=== PATIENT | female | born 1975 | race Caucasian/White ===

== ENCOUNTER 2018-12-08 12:05 | Inpatient (IN) | payer MEDICARE, MEDICAID ==
[~2018-12-08 12:05] MED LIST: Buffered Lidocaine 1% SYRIN* 1 ML/SYRINGE INTRADERM ONE; Dexamethasone IV* 4 MG/ML 1 ML (4 MG) IV SLOW PU ONE; Famotidine TAB* 20 MG PO ONE; Lactated Ringers 1000 ML Bag* 1,000 ML IV SCH
[2018-12-08] MEDS ORDERED: Dexamethasone IV* 4 MG/ML 1 ML (4 MG) ONE (13:01)
[2018-12-08] MEDS ORDERED: Famotidine TAB* 20 MG ONE ×2 (13:01→13:43)
[2018-12-08] MEDS ORDERED: Buffered Lidocaine 1% SYRIN* 1 ML/SYRINGE INTRADERM ONE (13:02)
[2018-12-08] MEDS ORDERED: ceFAZolin 2 GM PREMIX in ORs 2 GM/50 ML BAG IVPB ONE (13:04)
[2018-12-08] MEDS ORDERED: ceFAZolin 1 GM in Dextrose (*) 1 GM/50 ML BAG IVPB ONE (13:04)
[2018-12-08] MEDS ORDERED: fentaNYL* 50 MCG/ML 2 ML VIAL (100 MCG VIAL) ONE ×2 (13:46→18:38)
[2018-12-08] MEDS ORDERED: Midazolam* 1 MG/ML 2 ML VIAL (2 MG) ONE (13:46)
[2018-12-08] MEDS ORDERED: Propofol* 10 MG/ML 20 ML BTL ONE (13:47)
[2018-12-08 13:57] LABS: Urine Benzodiazepine Screen None Detected (None Detect); Urine Opiates Screen None Detected (None Detect)
[2018-12-08] MEDS ORDERED: Levalbuterol 0.63MG/3ML NEB* UNIT OF USE INH ONE ×3 (14:42→19:06)
[2018-12-08] MEDS ORDERED: Lidocaine 2% PF * 5 ML VIAL ONE (15:18)
[2018-12-08] MEDS ORDERED: Rocuronium* 10 MG/ML VIAL ONE (15:18)
[2018-12-08] MEDS ORDERED: Succinylcholine* 20 MG/ML 10 ML VIAL ONE (15:18)
[2018-12-08] MEDS ORDERED: HYDROmorphone INJ1* 1 MG/ML SYRINGE ONE ×2 (15:38→17:38)
[2018-12-08] MEDS ORDERED: KETAMINE HCL* 50 MG/ML 10 ML VIAL ONE (15:38)
[2018-12-08] MEDS ORDERED: oxyCODONE TAB* 5 MG TAB PO PRN (16:00)
[2018-12-08] MEDS ORDERED: Acetaminophen IV 1GM/100ML * 1,000 MG/100 ML VIAL IVPB ONE (16:00)
[2018-12-08] MEDS ORDERED: PROCHLORPERAZINE INJ 5 MG/ML 2 ML VIAL IV PRN (16:00)
[2018-12-08] MEDS ORDERED: HYDROmorphone INJ1* 1 MG/ML SYRINGE IV PRN (16:00)
[2018-12-08] MEDS ORDERED: Naloxone* 0.4 MG/ML 1 ML VIAL IV PRN (16:00)
[2018-12-08] MEDS ORDERED: DiMENhydriNATE IV* 50 MG/ML VIAL IV PUSH PRN (16:00)
[2018-12-08] MEDS ORDERED: Ketorolac INJ* 30 MG/ML 1 ML VIAL IV PRN (16:00)
[2018-12-08] MEDS ORDERED: Ondansetron INJ* 2 MG/ML VIAL ONE (17:42)
[2018-12-08] MEDS ORDERED: Magnesium Hydroxide LIQ* 30 ML UDC PO PRN (18:02)
[2018-12-08] MEDS ORDERED: Acetaminophen TAB* 325 MG PO PRN (18:02)
[2018-12-08] MEDS ORDERED: diPHENhydraMINE IV* 50 MG/ML 1 ml VIAL (BENADRYL) IV PRN (18:02)
[2018-12-08] MEDS ORDERED: Ondansetron INJ* 2 MG/ML VIAL IV PRN (18:02)
[2018-12-08] MEDS ORDERED: Bisacodyl SUPP* 10 MG SUPP PR PRN (18:02)
[2018-12-08] MEDS ORDERED: oxyCODONE/Acetamin 5/325 MG* TAB PO PRN (18:02)
[2018-12-08] MEDS ORDERED: Ketorolac INJ* 30 MG/ML 1 ML VIAL ONE (18:33)
[2018-12-08] MEDS ORDERED: Acetaminophen IV 1GM/100ML * 100 ML ONE (18:33)
[2018-12-08] MEDS ORDERED: oxyCODONE TAB* 5 MG TAB ONE (18:38)
[2018-12-08] MEDS ORDERED: Lactated Ringers 1000 ML Bag* 1,000 ML IV SCH (19:00)
[2018-12-08] MEDS: fentaNYL* 50 MCG/ML 2 ML VIAL (100 MCG VIAL) IV PRN ×2 (19:01→19:32)
[2018-12-08] MEDS: Diazepam TAB(*) 5 MG PO PRN (21:49)
[2018-12-08] MEDS: Magnesium Hydroxide LIQ* 30 ML UDC PO SCH (21:49)
[2018-12-08] MEDS: Docusate CAP* 100 MG PO SCH (21:49)
[2018-12-08] MEDS: ceFAZolin 1 GM ADVAN(*) 1 GM in NS 0.9% 50 ML* 50 ML IVPB SCH (23:19)
[2018-12-08] MEDS: oxyCODONE/Acetamin 5/325 MG* TAB PO PRN (23:19)
[2018-12-09] MEDS: oxyCODONE/Acetamin 5/325 MG* TAB PO PRN ×3 (03:21→14:24)
[2018-12-09] MEDS: Magnesium Hydroxide LIQ* 30 ML UDC PO SCH (07:38)
[2018-12-09] MEDS: ceFAZolin 1 GM ADVAN(*) 1 GM in NS 0.9% 50 ML* 50 ML IVPB SCH ×2 (07:39→15:16)
[2018-12-09] MEDS: Docusate CAP* 100 MG PO SCH (07:39)
[2018-12-09] MEDS ORDERED: amLODIPine TAB* 5 MG PO SCH (09:00)
[2018-12-09] MEDS ORDERED: Vitamin THERAPEUTIC TAB PO SCH (09:00)
[2018-12-09] MEDS ORDERED: Aspirin TAB* 325 MG PO SCH (09:00)
[2018-12-09] MEDS ORDERED: Losartan TAB* 25 MG PO SCH (09:00)
[2018-12-09] MEDS ORDERED: Gabapentin CAP(*) 300 MG PO SCH (09:00)
[2018-12-09] MEDS ORDERED: BuPROPion XL* 300 MG TAB.XL PO SCH (09:00)
[2018-12-09] MEDS: Diazepam TAB(*) 5 MG PO PRN (09:05)
--- NOTE | 2018-12-09 12:25 | PN ---
Progress Note - Progress Note Date of Service: 12/09/18 SOAP: Subjective: []Pt seen OOB in chair. She feels well, she has left knee pain but it is tolerable. Denies CP, feeling of irregular heartbeats, SOB, dizziness, nausea. Objective: []General: Appears well, NAD LLE: IROM locked in extension. DF/PF ankle and f/e MTPs intact. DP2+, sensation intact to light touch distally. Calves supple and nontender without erythema, edema or palpable cords Assessment: []POD 1 sp L knee revision patella tendon repair Plan: [TTWB LLE Keflex 500 mg TID x 7 days aspirin 325 mg BID for dvt prophy Anticipate DC home today Vital Signs Temp 98.3 F 12/09/18 07:23 Pulse 101 12/09/18 07:23 Resp 18 12/09/18 10:04 BP 117/68 12/09/18 07:23 Pulse Ox 96 12/09/18 07:49 Intake & Output 12/08/18 12/09/18 12/09/18 18:59 06:59 18:59 Intake Total 1999 1475 683 Output Total 800 300 Balance 1999 675 383 Weight 271 lb 9.752 oz Intake: IV Fluids 1999 615 683 ABX - CEFAZOLIN 55 110 LR 2000 560 573 Oral 860 Output: Urine 800 300 Laboratory Last Values Urine Opiates Screen None detected (None Detect) 12/08/18 13:00 Ur Barbiturates Screen None detected (None Detect) 12/08/18 13:00 Ur Phencyclidine Scrn None detected (None Detect) 12/08/18 13:00 Ur Amphetamines Screen None detected (None Detect) 12/08/18 13:00 U Benzodiazepines Scrn None detected (None Detect) 12/08/18 13:00 Urine Cocaine Screen None detected (None Detect) 12/08/18 13:00 U Cannabinoids Screen None detected (None Detect) 12/08/18 13:00
--- NOTE | 2018-12-09 13:28 | DS ---
Orthopedic Discharge Summary - Discharge Summary Date of Admission:12/08/18 Date of Discharge: 12/09/18 Date of Surgery: 12/08/18 Attending Orthopedic Provider: Dr Valadez Pre-operative Diagnosis: chronic left patellar tendon tear Operative Procedure: left patellar tendon repair revision Condition of Patient: stable History: LAWRENCE VAELRA is a 43 year old F with chronic left patellar tendon tear. She elected to undergo a left patellar tendon repair. Hospital Course: LAWRENCE was admitted to [facility] on 12/08/18. Patient underwent a [] without complication followed by a brief recovery in PACU and transfer to the Short Stay Surgical Unit in stable condition. Post-op day 1: patient was alert and in no acute distress. Dressing was clean, dry and intact. IROM in place locked in extension. Operative extremity dorsiflexion and plantarflexion intact, sensation intact to light touch distally, DP2+. Stable for discharge to home. Discharge Medications Medication Instructions Recorded Confirmed Type Acetaminophen [Acetaminophen Extra 500 - 1,000 mg PO BID PRN 12/02/18 12/08/18 History Strength] DOXYcycline CAP(*) [DOXYcycline 100 mg PO QAM 12/02/18 12/08/18 History 100MG CAP(*)] Gabapentin 600 mg PO QAM 12/02/18 12/08/18 History Losartan Potassium [Cozaar] 50 mg PO QAM 12/02/18 12/08/18 History Naltrexone TAB* 50 mg PO QAM 12/02/18 12/08/18 History amLODIPine TAB* [Norvasc 5 mg TAB*] 5 mg PO QAM 12/02/18 12/08/18 History buPROPion SR TAB* [Wellbutrin SR 300 mg PO QAM 12/02/18 12/08/18 History TAB*] Acetaminophen TAB* [Tylenol TAB*] 650 mg PO Q8H PRN tab 12/09/18 Rx Aspirin TAB* [Aspirin 325 MG TAB*] 325 mg PO BID #60 tab 12/09/18 Rx Docusate CAP* [Colace Cap*] 100 mg PO BID PRN #90 cap 12/09/18 Rx oxyCODONE/Acetamin 5/325 MG* 1 tab PO Q4H PRN #0 tab MDD 8 12/09/18 Rx [Percocet 5/325 TAB*] oxyCODONE/Acetamin 5/325 MG* 2 tab PO Q4H PRN #40 tab MDD 8 12/09/18 Rx [Percocet 5/325 TAB*] Discharge Instructions following Orthopedic Surgery: Activity: * toe touch weight bearing with IROM brace in place locked in extension * Keep leg straight in IROM brace at all times Wound care: Keep dressing clean, dry and intact until follow up visit Call Orthopedic office for: * Increased drainage * Redness * Increased pain * Fever Go to ER with shortness of breath or chest pain. Diet: * Regular diet * Increase fluids and fiber to prevent constipation. * Continue to use stool softeners, call office if no bowel motion within 48 hours. Medications See Home Medication List in your packet for medications that you should take after discharge. DVT Prophylaxis: Aspirin Dosin mg twice a day for duration of immobilization Pain Control: Percocet Dosin/325 mg 1-2 tabs by mouth every 4-6 hours as needed for pain. Maximum of 8 tabs per day. Hold for sedation. Wean off as soon as pain allows. To wean, space out doses. Please note that Percocet contains Tylenol (acetaminophen). Maximum daily dose of Tylenol is 4000 mg from all sources. FOLLOW UP: Follow up with [Rory] Within 10 days, sooner with concerns, call for appointment Please call our office with any questions or concerns ([phone])
[2018-12-09 15:29] VITALS: BP 109/61
--- NOTE | 2018-12-11 13:54 | OP ---
OPERATIVE NOTE: DATE OF OPERATION: 12/08/18 DATE OF : 71 SURGEON: Viktor Valadez MD. TURNER IN: MICHAEL Reza A physician assistant to the ceo was required for the length of the procedure for assistance with positioning, retraction, and closure. ANESTHESIOLOGIST: Dr. Viktor Robles. ANESTHESIA: General anesthesia, local anesthesia. PRE-OP DIAGNOSES: 1. Chronic left patellar tendon tear. 2. Status post patellar tendon repair by Dr. Jose Antonio Huddleston, 02/26/18, with subsequent early re-tear. 3. History of recent drug addiction, including methamphetamine use. 4. Left patella fracture, distal 5. Left knee osteoarthritis POST-OP DIAGNOSES: 1. Chronic left patellar tendon tear. 2. Status post patellar tendon repair by Dr. Jose Antonio Huddleston, 02/26/18 with subsequent early re-tear. 3. History of recent drug addiction including methamphetamine use. 4. Left patella fracture, distal 5. Left knee osteoarthritis OPERATIVE PROCEDURES: 1. Revision left open patellar tendon repair. 2. Supplementation of left open patellar tendon repair with hamstring autograft and Arthrex internal brace. 3. Modifier 22, as this was an unusual or complex case. This was so because this was a revision case and because the patellar tendon had been chronically re -torn since at least May 2018, over 6 months ago. Besides performing a patellar tendon repair, I supplemented the repair with hamstring autograft and also used an Arthrex internal brace. 4. Open removal of lateral patella osteophyte with repair of lateral retinaculum left knee. ANTIBIOTICS: 3 g Ancef IV. IV FLUIDS: 1800 cc crystalloid. TOURNIQUET TIME: 120 minutes at 300 mmHg, left thigh. [id number] TIME: 127 minutes. SPECIMEN: None. IMPLANTS: Arthrex SwiveLock suture anchor with tape and #2 FiberWire, 2 anchors - 1 in the patella and 1 in the proximal tibia. COMPLICATIONS: None. ESTIMATED BLOOD LOSS: Minimal. INDICATIONS FOR PROCEDURE: The patient is a 43-year-old woman, disabled secondary to back pain starting 2007, who injured her left knee with a fall down stairs on 02/19/18. She underwent primary left open patellar tendon repair by Dr. Jose Antonio Huddleston at [facility] 7 days later on 02/26/18. The operative note dictates that this was a straightforward repair; according to the patient, Dr. Huddleston described a 50% chance of success. The patient never did physical therapy. During the postoperative period, the patient was utilizing drugs secondary to her drug addiction. There were also multiple falls. The patient presented to me in clinic saying that she had had a severe injury to the left knee in July 2018; however, clearly there had been problems before then because there is an MRI from outside hospital from that already demonstrated a patellar tendon re-tear. The patient had been told that she had had a patellar fracture and indeed MRIs have demonstrated that the distalmost end of the patella fractured off with one of these falls. The patient most recently had been walking in a knee brace with range of motion limited to 0 to 30 degrees of flexion. The patient is obese with a BMI over 40. Her tear was chronic and it had already been repaired, so this was a revision setting. The patient also is a tobacco user, chewing tobacco 4 times a day. Certainly, there are many concerning attributes to this case and strikes against her having a successful outcome. The patient swore to me that she would do physical therapy postoperatively if we were to operate on her. The patient has also spent some time in residential in the past year. MRI showed clearly torn tissue, but appeared to show some good quality patellar tendon tissues still present distally. The patient opted for surgical procedure. Discussed risks and potential complications of surgery. I discussed revision repair or reconstruction and I had Achilles and hamstring tendon allograft available as needed for the reconstruction setting. DESCRIPTION OF PROCEDURE: In preoperative holding, the patient signed a written consent. Operative extremity was marked in the preoperative holding. The patient was taken back to the operating room and placed supine on operating room table. Sedated and intubated. Placed a tourniquet about the left proximal thigh. Left lower extremity was prepped and draped. A surgical time-out performed. Esmarch was applied and tourniquet was elevated. Made an anterior longitudinal skin incision. I went through the patient's prior surgical scar, which was biased medially about the anterior aspect of the knee. I dissected down to the extensor mechanism. The patient, as I predicted based on preoperative MRIs, had a significant amount of scar tissue present. I started with the distalmost aspect of the patellar tendon to find some good quality tissue that could help me identify skin planes. I did identify good quality patellar tendon tissue distally. Also, having found the correct layer, I dissected tissue off the medial and lateral retinaculum. Dissecting with scissors or with my fingers when appropriate, I dissected along the patellar tendon. I marked a spot almost 5 cm from the distal end of the patellar tendon where the character of the tissue appeared to change. Depending on exactly where it was measured on the patellar tendon insertion, this was 4 to 5 cm from its distal end. I thought that this was likely the proximal-most extent of the good quality patellar tendon tissue. I continued my dissection. I found that indeed there were multiple nonabsorbable sutures present at this level, consistent where the patient had previously had a patellar tendon repair and where the proximal extent of his sutures was located. Carefully dissected about the tendon. Just in case this had been a mid substance rupture, which is not what the prior operative note had indicated, I did not want to remove any good quality tissue. I removed en bloc next, scar tissue that had formed between the patellar tendon and the patella, which had artificially elongated the patellar tendon making it nonfunctional. I was able to bring the patella onto the patellar tendon without any difficulty. Given that there had been some loss of distal patella with fracture , I was concerned slightly about patella baja; however, this patient first and foremost needed a competent external mechanism to prevent instability of the knee. I did find a bony fragment at the distal end of the patella that I removed. I should also state that the patient was noted on preoperative imaging to have a large spur already about the lateral aspect of the patella, consistent already with arthritic changes in the knee. Given the large size of this spur and its potential to cause significant pain, I decided to remove it. I made a small incision in the lateral retinaculum just lateral to the patella, dissected down to that spur and removed it with a rongeur. Given the ability to bring patellar tendon to patella with the knee in extension without significant force, I decided that I would do a suture tunnel repair of the patellar tendon. However, given the patient's poor compliance, obesity, smoking, and the revision nature of this procedure, I definitely wanted to reinforce this repair with as much strength and biology as possible. Therefore, I decided that I would also supplement it with hamstring autograft. Also decided that I would use an internal brace with suture anchors in the patella and in the proximal tibia. Initially, I have planned on placing 3 suture tunnels in the patella followed by 1 to 2 suture anchors along the periphery of the patella and the proximal tibia. However, given the small size of the patella, and the fact that the distal end of it had fractured off, I did not have enough room for this. Therefore, I came up with alternative, which was 2 suture anchors, one medial and the other lateral, longitudinal, it is normally the case. However, I replaced the center suture tunnel with a suture anchor. This was going to be a SwiveLock that I would incorporate both into my repair and into my internal brace. Using a 2 mm drill bit, I placed my medial and lateral tunnels in the patella. I placed passing suture into those tunnels. I next drilled, tapped, and placed a SwiveLock anchor in the center at the distal end of the patella. I next placed a whipstitch in the patella using FiberWire #5 suture. This was [place] stitch. I placed it along the medialmost aspect of the patellar tendon and then along the lateralmost aspect of the patellar tendon. I brought the suture ends through the suture tunnels. I brought the sutures together at the proximal aspect of the patella. With the knee in full extension, I tied a knot proximally, which brought together nicely the patellar tendon to the patella. Next, I used the suture from the anchor in the patella to place a second [place] stitch moving distal and then proximal of the center of the patellar tendon. I tied that proximally. Now, I essentially had 2 different [place] stitches in the patellar tendon that were fixed with suture tunnels and then anchor proximally. Next, I took the FiberTape from the patellar anchor and created an internal brace. I placed that through the superficial most aspect of part of the patellar tendon just to prevent the tape from being too prominent. I flexed the knee to 20 to 30 degrees of flexion, found a spot distal and slightly medial to the insertion of the patellar tendon. I placed a SwiveLock anchor there with the tape. It should be noted that even before I placed the internal brace with my second SwiveLock anchor, I was able to flex the knee to at least 30 to 40 degrees of flexion without any gapping of my patellar tendon repair. After having done the patellar tendon repair and the Arthrex internal brace, I wanted to add additional biology to the repair. I released the sartorius fascia overlying the hamstring tendons. I identified the gracilis and semitendinosus tendons. I harvested these tendons using an open harvester, leaving their insertions in the proximal tibial intact. I removed excess muscle from these tendons, just utilizing tendinous component of them. I next used a sharp small hemostat to weave those tendons through the extensor mechanism, bringing them proximally through the quadriceps tendon just proximal to the patella and then down distally until the ends of the tendon reached the patellar tendon itself. Many stitches were placed to hold the graft in place in the extensor mechanism. Irrigation. Closure of the lateral retinaculum of the patella where the osteophyte had been removed from the patella with Vicryl 0 suture. Closure of any defects in retinaculum that could be closed with [id number] stitches using Vicryl 0 suture. I also tightened some retinaculum that appeared overly loose. Irrigation. Closure of the subcutaneous tissue using buried simple stitches using Vicryl 2-0 suture. Closure of the skin with светлана. Local anesthesia placed into the subcutaneous tissues using Marcaine 0.5% with epinephrine. Xeroform, 4x4's, ABD, sterile Webril, Francisco bandage from foot to proximal thigh. Tourniquet was dropped. The patient was placed in a knee brace locked in extension. The patient was awakened and extubated. DISPOSITION: The patient was admitted postoperatively to my service for pain control given the significant painful nature of extensor mechanism procedures. She was placed on Valium and then required additional muscle relaxants. She was also given IV and oral narcotics as needed for pain control. She met with Physical Therapy about functional assistance. She would be discharged home when medically stable. The patient will be discharged home on Percocet as needed for pain control and Valium as needed for muscle spasm. She also received aspirin for 2 weeks for DVT prophylaxis. She will follow up with me in clinic 10 to 14 days postoperatively. She will be in a knee brace or knee immobilizer at all times with the knee locked in full extension. The patient will not begin physical therapy until after she sees me postoperatively in clinic. The patient is to be only toe touch weightbearing with that left lower extremity. [id number]/[facility] #: [id number] [facility]OSPITALJeovany
== END 2018-12-09 16:25 | disposition home or self-care (01) | DRG 488 ==
LOC: OR 12:05 → SSU 18:02
PROVIDERS: ADMIT Orthopaedic Surgery; ATTEND Orthopaedic Surgery
PROC: 0QBF0ZZ Excision of Left Patella, Open Approach (ICD-10-PCS; 2018-12-08)
PROC: 0LUR07Z Supplement Left Knee Tendon with Autologous Tissue Substitute, Open Approach (ICD-10-PCS; 2018-12-08)
PROC: 0LBM0ZZ Excision of Left Upper Leg Tendon, Open Approach (ICD-10-PCS; 2018-12-08)
PROC: 0LUR0JZ Supplement Left Knee Tendon with Synthetic Substitute, Open Approach (ICD-10-PCS; principal; 2018-12-08 15:15)
DX: S76.112A Strain of left quadriceps muscle, fascia and tendon, initial encounter (principal); S82.002A Unspecified fracture of left patella, initial encounter for closed fracture; Z68.41 Body mass index [BMI] 40.0-44.9, adult; F15.21 Other stimulant dependence, in remission; M76.892 Other specified enthesopathies of left lower limb, excluding foot; E66.9 Obesity, unspecified; I10 Essential (primary) hypertension; M25.362 Other instability, left knee; J43.9 Emphysema, unspecified; G47.30 Sleep apnea, unspecified; F31.9 Bipolar disorder, unspecified; F41.9 Anxiety disorder, unspecified; M54.9 Dorsalgia, unspecified; K21.9 Gastro-esophageal reflux disease without esophagitis; F17.220 Nicotine dependence, chewing tobacco, uncomplicated; W18.30XA Fall on same level, unspecified, initial encounter; Y92.9 Unspecified place or not applicable; Z83.3 Family history of diabetes mellitus; Z82.49 Family history of ischemic heart disease and other diseases of the circulatory system; Z80.1 Family history of malignant neoplasm of trachea, bronchus and lung; Z80.9 Family history of malignant neoplasm, unspecified; Z87.820 Personal history of traumatic brain injury; Z79.1 Long term (current) use of non-steroidal anti-inflammatories (NSAID); Z79.899 Other long term (current) drug therapy; Z88.2 Allergy status to sulfonamides
CPT/HCPCS: 80307; 81025; A9270-GY; C1713; G8978-GP-CK; G8979-GP-CH; J0330; J0690; J1100; J1170; J1885; J2250; J2405; J2704; J3010